=== PATIENT | female | born 1965 | race Caucasian/White ===

== ENCOUNTER 2017-08-23 19:11 | Emergency (ER) | payer OTHER ==
[2017-08-23 23:37] VITALS: BP 144/72
== END 2017-08-23 21:11 | disposition home or self-care (01) ==
LOC: ED 19:11
DX: S16.1XXA Strain of muscle, fascia and tendon at neck level, initial encounter (principal); M54.9 Dorsalgia, unspecified; R51 Headache; M79.1 Myalgia; Z88.0 Allergy status to penicillin; Z88.6 Allergy status to analgesic agent; V49.49XA Driver injured in collision with other motor vehicles in traffic accident, initial encounter; Y92.411 Interstate highway as the place of occurrence of the external cause; Y99.8 Other external cause status; Y93.89 Activity, other specified